=== PATIENT | female | born 1980 | race Asian ===

== ENCOUNTER 2017-06-28 12:28 | Inpatient (IN) | payer OTHER ==
[2017-06-22 12:33] LABS: BASOPHILS % (AUTO) 0.5 % (0.0-2.0); EOSINOPHILS % (AUTO) 3.4 % (1.0-6.0); HEMATOCRIT 30.3 % (36-46); HEMOGLOBIN 10.3 g/dL (12.0-16.0); LYMPHOCYTES # (AUTO) 1.4 K/uL (1.0-4.8); LYMPHOCYTES % (AUTO) 31.4 % (22.0-44.0); MEAN CORPUSCULAR HEMOGLOBIN 34.3 pg (26.0-34.0); MEAN CORPUSCULAR HGB CONC 33.9 G/dL (31.0-37.0); MEAN CORPUSCULAR VOLUME 101 fL (80-100); MONOCYTES # (AUTO) 0.3 K/uL (0.1-1.0); MONOCYTES % (AUTO) 7.3 % (2.0-9.0); NEUTROPHILS # (AUTO) 2.6 K/uL (1.8-7.7); NEUTROPHILS % (AUTO) 57.4 % (40.0-70.0); PLATELET COUNT (AUTO) 250 K/uL (150-450); RED BLOOD CELL COUNT(AUTO) 2.99 MIL/uL (4.00-5.20); RED CELL DISTRIBUTION WIDTH 14.9 % (11.5-14.5); WHITE BLOOD COUNT (AUTO) 4.6 K/uL (4.5-11.0)
[2017-06-22 12:44] LABS: ANION GAP 5 mmol/L (8-16); CARBON DIOXIDE 29 mmol/L (22-29); CHLORIDE 104 mmol/L (98-107); CREATININE 0.61 mg/dL (0.60-1.30); GLOMERULAR FILTR. RATE CALC > 60 mL/min (>60); POTASSIUM 4.1 mmol/L (3.5-5.1); SODIUM SERUM 138 mmol/L (136-145); UREA NITROGEN, BLOOD 11 mg/dL (7-18)
[2017-06-22 13:22] LABS: RBC MORPHOLOGY COMMENT ABNORMAL RBC MORPH
[~2017-06-28] VITALS: Ht 162.6 cm; Wt 47.3 kg
[~2017-06-28 12:28] MED LIST: CeFAZolin 2 GM/DEXTROSE 50 ML IV ONE; DEXAMETHASONE SOD PHOS 4 MG/ML VIAL IVP ONE; FentaNYL CITRATE-PF 100 MCG/2 ML VIAL IVP ONE; GLYCOPYRROLATE 0.2 MG/ML VIAL IM ONE; LIDOCAINE HCL/PF 2% 5 ML VIAL INJ ONE; METOCLOPRAMIDE HCL 5 MG/ML 2 ML VIAL IVP ONE; MIDAZOLAM HCL 2 MG/2 ML VIAL IVP ONE; ONDANSETRON HCL 4 MG/2 ML VIAL IVP ONE; PROPOFOL 1% 20 ML VIAL IVP ONE; RINGERS SOLUTION,LACTATED 1,000 ML IV ONE; TAMO10 PO
[2017-06-28] MEDS ORDERED: RINGERS SOLUTION,LACTATED 1,000 ML IV ONE ×2 (12:31→12:40)
[2017-06-28] MEDS ORDERED: LIDOCAINE HCL 2%/EPI 1:200,000/PF 10 ML VIAL ONE (12:40)
[2017-06-28] MEDS ORDERED: BUPIVACAINE HCL/PF 0.5% 30 ML VIAL ONE (12:40)
[2017-06-28] MEDS ORDERED: GUM MASTIC/STORAX/MSAL/ALCOHOL LIQUID 0.67 ML VIAL TP ONE (12:40)
[2017-06-28] MEDS ORDERED: METHYLENE BLUE 1% 10 ML VIAL ONE (12:42)
[2017-06-28] MEDS ORDERED: CeFAZolin 2 GM/DEXTROSE 50 ML IV ONE (12:52)
[2017-06-28] MEDS ORDERED: SODIUM CHLORIDE 0.9% 0 ML ONE ×2 (13:00)
[2017-06-28] MEDS ORDERED: PROPOFOL 1000 MG/ISO-OSM 100 ML IV ONE ×2 (13:34→14:50)
[2017-06-28] MEDS ORDERED: ACETAMINOPHEN 1000 MG/ISO-OSM 100 ML IV ONE (13:35)
[2017-06-28] MEDS ORDERED: FentaNYL CITRATE-PF 100 MCG/2 ML VIAL IVP PRN (14:15)
[2017-06-28] MEDS ORDERED: IBUPROFEN 600 MG TABLET PO PRN (15:15)
[2017-06-28] MEDS ORDERED: ACETAMINOPHEN 500 MG TABLET PO PRN (15:15)
[2017-06-28] MEDS: HYDROmorphone 2 MG/ML SYRINGE IVP PRN ×2 (15:57→16:07)
[2017-06-28] MEDS ORDERED: HYDROmorphone 2 MG/ML SYRINGE ONE (16:01)
[2017-06-28 16:45] VITALS: BP 120/78
[2017-06-28 19:10] VITALS: BP 107/74
[2017-06-28] MEDS: MORPHINE SULFATE 2 MG/ML SYRINGE IVP PRN (19:10)
[2017-06-28] MEDS ORDERED: OXYGEN THERAPY IH SCH (20:00)
[2017-06-28 20:19] VITALS: BP 111/72
[2017-06-28] MEDS ORDERED: HEPARIN SODIUM,PORCINE 5,000 UNITS/ML VIAL SQ SCH (21:00)
[2017-06-28] MEDS: HYDROCODONE/ACETAMINOPHEN 5-325 MG TABLET PO PRN (21:05)
[2017-06-29 00:15] VITALS: BP 93/69
[2017-06-29] MEDS: MORPHINE SULFATE 2 MG/ML SYRINGE IVP PRN (00:15)
[2017-06-29 04:34] VITALS: BP 96/58
[2017-06-29 09:30] VITALS: BP 97/66
[2017-06-29] MEDS: HYDROCODONE/ACETAMINOPHEN 5-325 MG TABLET PO PRN (09:43)
[2017-06-29] MEDS ORDERED: IBUPROFEN 600 MG TABLET PO PRN (14:00)
[2017-06-29] MEDS ORDERED: ACETAMINOPHEN 500 MG TABLET PO PRN (14:00)
== END 2017-06-29 17:08 | disposition home or self-care (01) | DRG 362 ==
LOC: 6N 12:28 → 4E 16:45
PROVIDERS: ADMIT Surgery; ATTEND Surgery
PROC: 0HTT0ZZ Resection of Right Breast, Open Approach (ICD-10-PCS; principal; 2017-06-28 14:00)
DX: C50.911 Malignant neoplasm of unspecified site of right female breast (principal); Z83.3 Family history of diabetes mellitus
CPT/HCPCS: 87081; 88309; 88341; 88342; J0131; J0690; J1100; J1170; J2250; J2270; J2405; J2704; J2765; J3010; J3490; J7050; J7120; Q9968